=== PATIENT | female | born 1995 | race American Indian/Alaskan Native ===

== ENCOUNTER 2018-04-19 20:59 | Inpatient (IN) | payer OTHER ==
[2018-04-19 21:13] VITALS: BMI 32.5
[2018-04-19] MEDS ORDERED: Lactated Ringer's 1,000 ML IV ONE (21:57)
[2018-04-19 22:36] LABS: BASO % 0.3 % (0.0-2.0); EOS % 0.4 % (0.0-4.0); HEMOGLOBIN 9.1 g/dL (11.0-16.0); LYMPH # 2.6 K/uL (1.0-4.3); LYMPH % 34.6 % (20.0-40.0); MEAN CELL VOLUME 72.2 fL (81.0-99.0); MEAN CORPUSCULAR HEMOGLOBIN 23.5 pg (27.0-31.0); MEAN CORPUSCULAR HGB CONC 32.6 g/dL (33.0-37.0); MEAN PLATELET VOLUME 9.8 fL (7.2-11.7); MONO # 0.8 K/uL (0.0-0.8); MONO % 10.3 % (0.0-10.0); NEUT % 54.4 % (50.0-75.0); RBC 3.88 Mil/uL (3.80-5.20); RED CELL DISTRIBUTION WIDTH 17.3 % (11.5-14.5); WHITE BLOOD COUNT 7.4 K/uL (4.8-10.8)
--- NOTE | 2018-04-19 22:42 | OBADHP ---
Datetime: 04/19/2018 22:37 Admit Comment, IP Provider: 22 y/o at 38.6 wks in Labor Admit to L_D Labd including T_C for 2 units on hold for low H/H from 04/17/18 CBC No records available. Requesting Epidural for pain Pelvic Type - PN: Adequate Extremities - PN: Normal Abdomen - PN: Normal Presentation-Admit: Vertex FHR - Baseline A Provider: 130 Membranes, Provider: Intact Contraction Comments Provider: Every 3-4 min Comments, ACOG Physical Exam: ABD: Soft, NT VE: 4/80/-2 Gestation - Est Wks by US: 38.6 IP Chief Complaint: Uterine contractions NICHD Variability Prov Fetus A: Moderate 6-25bpm NICHD Accel Fetus A IP Provider: 15X15 FHR Category Provider Fetus A: Category I NICHD Decel Fetus A IP Provider: None Dilatation, Provider: 4 Effacement, Provider: 80 Station, Provider: -2 EGA AdmitDate IP: 38.2 IP Adm Impression: Term, intrauterine IP Admit Plan: Admit to unit; Initiate labor protocol Datetime: 04/19/2018 21:34 Back - PN: Normal Breast - PN: Normal Lungs - PN: Normal Heart - PN: Normal Thyroid - PN: Normal Neurologic - PN: Normal HEENT - PN: Normal General - PN: Normal Vital Signs Provider: Reviewed; Within Normal Limits Genitourinary Exam: Normal DTRs - PN: Normal
[2018-04-19 22:50] LABS: ALB/GLOB RATIO 0.9 (1.0-2.1); ALBUMIN 3.3 g/dL (3.5-5.0); ALT/SGPT 17 U/L (9-52); AST/SGOT 24 U/L (14-36); BLOOD UREA NITROGEN 4 mg/dL (7-17); CALCIUM 9.4 mg/dl (8.6-10.4); GFR AFRICAN-AMERICAN > 60; GFR NON-AFRICAN AMERICAN > 60
[2018-04-19] MEDS ORDERED: Bupivacaine HCl/FentaNYL Cit 100 ML EPI ONE (22:53)
[2018-04-19 23:03] LABS: SQUAMOUS EPITHIAL 1 /hpf (0-5); URINE AMORPHOUS SEDIMENT OCC /ul (<OCC); URINE BACTERIA RARE (<OCC); URINE BILIRUBIN NEGATIVE (NEGATIVE); URINE BLOOD NEGATIVE (NEGATIVE); URINE CLARITY Clear (Clear); URINE COLOR Straw (YELLOW); URINE GLUCOSE (UA) NORMAL (Normal); URINE LEUKOCYTE ESTERASE TRACE Leu/uL (Negative); URINE PROTEIN NEGATIVE (NEGATIVE); URINE UROBILINOGEN NORMAL mg/dL (0.2-1.0)
[2018-04-19 23:21] LABS: HEPATITIS B SURFACE AG Negative (NEGATIVE)
--- NOTE | 2018-04-19 23:55 | OBDS ---
DELIVERY PERSONNEL Nurse Machinery Repair Maintenance Supervisor Certified: N/A Delivery Doctor: DR DELMA Funes Nurse: N/Samia Logistics Tech: Kristine Fajardo RN Anesthesiologist: N/A International Tax Manager: N/A Resident: NCasa MATERNAL INFORMATION Delivery Anesthesia: None Medications in Delivery: PITOCIN 20 UNITS IN 1L LR Estimated Blood Loss (ml): 225 Placenta Cultured: No Maternal Complications: None RN Comments: delivered via to live baby girl with an score 0f 9 and 9 Provider Comments: After the FD Membranes were ruptured at the time of VE. Pt started pushing immedi ately. Pt was very uncomfortable with pain and riding on the bed. Head delivered at direct OP positio n. Shoulders delivered artaumatically adn the rest of the body followed. Placenta delivered spontaneo usly. Laceration repaired with 2-0 and 3-0 vicryl. LABOR SUMMARY EDC: 05/01/2018 00:00 No. Babies in Womb: 1 Attempted: No Labor Anesthesia: None LABOR INFORMATION Onset of Labor: 04/19/2018 09:00 Complete Dilatation: 04/19/2018 22:50 Group B Beta Strep: Negative (Annotations: 04/14/2018) Antibiotics # of Doses: 0 Antibiotics Time of Last Dose: N/A Steroids Given: None Reason Steroids Not Administered: Not Applicable MEMBRANES Membranes Rupture Method: Spontaneous Rupture of Membranes: 04/19/2018 22:49 Length of Rupture (hrs): 0.47 Amniotic Fluid Color: Clear Amniotic Fluid Amount: Moderate Amniotic Fluid Odor: Normal STAGES OF LABOR Stage 1 hrs: 13 Stage 1 min: 50 Stage 2 hrs: 0 Stage 2 min: 27 Stage 3 hrs: 0 Stage 3 min: 5 Total Time in Labor hrs: 14 Total Time in Labor min: 22 VAGINAL DELIVERY Episiotomy: None Laceration Extension: Second Degree Laceration Type: Periurethral Other Laceration: second degree mid perineum right periurethral Laceration Repair: Yes Laceration Repair Note: laceration repaired with 2-0 vicryl ( Mid perineal) Adriana urethral repaired w ith 3-0 vicryl Initial Vag Sponge Count: 10 Final Vag Sponge Count: 10 Initial Vag Sharps Count: 2 Final Vag Sharps Count: 2 Sponge Count Correct: Yes Sharps Count Correct: Yes BABY A INFORMATION Delivery Date/Time: 04/19/2018 23:17 Method of Delivery: Vaginal Born in Route : No : N/A Forceps: N/A Vacuum Extraction: N/A Shoulder Dystocia : No SHOULDER DYSTOCIA BABY A Delivery Date/Time: 04/19/2018 23:17 PRESENTATION/POSITION BABY A Presentation: Cephalic Cephalic Presentation: Vertex Vertex Position: DIRECT OP Breech Presentation: N/A PLACENTA INFORMATION BABY A Placenta Delivery Time : 04/19/2018 23:22 Placenta Method of Delivery: Spontaneous Placenta Status: Delivered SCORES BABY A Heart Rate 1 min: >100 bpm Resp Effort 1 min: Good Cry Reflex Irritability 1 min: Cough or Sneeze or Pulls Away Muscle Tone 1 min: Active Motion Color 1 min: Body [place], Extremities Blue Resuscitation Effort 1 min: N/A SCORE 1 MIN: 9 Heart Rate 5 min: >100 bpm Resp Effort 5 min: Good Cry Reflex Irritability 5 min: Cough or Sneeze or Pulls Away Muscle Tone 5 min: Active Motion Color 5 min: Body [place], Extremities Blue Resuscitation Effort 5 min: N/A SCORE 5 MIN: 9 INFANT INFORMATION BABY A Gestational Age at Delivery: 38.2 Gestational Status: Term Infant Outcome : Liveborn Condition : Stable Infant Sex: Female IDENTIFICATION/MEDS BABY A ID Band Number: [id number] ID Band Location: Right Leg; Left Leg Sensor Applied: Yes Sensor Number: [id number] Sensor Location : Cord Clamp Vitamin K Given : Aquamephyton 1 mg IM; Left Thigh Erythromycin Given: Given Both Eyes WEIGHT/LENGTH BABY A Birthweight (gms): 3050 Weight (lb): 6 Weight (oz): 12 Infant Length Inches: 19.00 Length cms: 48.3 CORD INFORMATION BABY A No. Cord Vessels: #3 Nuchal Cord : N/A Nuchal Cord Other: 0 True Knot: 0 Cord pH Baby Arterial: n/a Cord pH Baby Venous: n/a Cord Blood Taken: Yes Banking/Donate Info: n/a Infant Suction: None ASSESSMENT BABY A Complications: None Physical Findings at Delivery: Within Normal Limits Infant Respirations: Appears Normal Digital Marketing Assistant/ALS Called : No Infant Care By: KRISTINE FAJARDO RN Transferred To: Nursery
[2018-04-19] MEDS ORDERED: Oxytocin 30 UNIT 30 UNITS/500 ML BAG IV ONE (23:58)
[2018-04-19] MEDS ORDERED: Benzocaine/Menthol 20%-0.5% Topical Spray (60 ml) TOP PRN (23:58)
[2018-04-20] MEDS: Oxycodone/Acetaminophen 5/325 mg Tab PO PRN ×3 (04:53→17:06)
[2018-04-20 06:53] LABS: BASO % 0.2 % (0.0-2.0); HEMOGLOBIN 8.3 g/dL (11.0-16.0); LYMPH # 1.5 K/uL (1.0-4.3); LYMPH % 11.2 % (20.0-40.0); MEAN CELL VOLUME 72.9 fL (81.0-99.0); MEAN CORPUSCULAR HEMOGLOBIN 22.8 pg (27.0-31.0); MEAN CORPUSCULAR HGB CONC 31.3 g/dL (33.0-37.0); MEAN PLATELET VOLUME 9.8 fL (7.2-11.7); MONO # 1.4 K/uL (0.0-0.8); MONO % 10.7 % (0.0-10.0); NEUT # 10.4 K/uL (1.8-7.0); NEUT % 77.9 % (50.0-75.0); RBC 3.62 Mil/uL (3.80-5.20); RED CELL DISTRIBUTION WIDTH 17.4 % (11.5-14.5); WHITE BLOOD COUNT 13.4 K/uL (4.8-10.8)
--- NOTE | 2018-04-20 08:06 | OBPPN ---
Datetime: 04/20/2018 07:59 PP Pain Prov: Within normal limits PP Nausea Prov: Denies PP Comments Phys Exam Prov: ABD: Soft, NT, Uterus firm at Umbilicus Ext: NO calf tenderness PP Impression Prov: Normal progression PP Plan Prov: Continue present management PP Progress Note Prov: A/P: Pt doing well. No complaints today. Continue post Ice pack to the perineum Vital Signs Provider PP: Reviewed
[2018-04-20] MEDS: Multiple Vitamins Tab PO SCH (09:50)
--- NOTE | 2018-04-20 21:08 | OBPPN ---
Datetime: 04/20/2018 21:03 PP Pain Prov: Within normal limits PP Nausea Prov: Denies PP Flatus Prov: Yes PP Breasts Prov: Normal PP Abdomen/Uterus Prov: Normal PP CVA Tenderness Prov: Normal PP Comments Phys Exam Prov: fudi below um ext no ed edm vulva healing PP Impression Prov: Normal progression PP Plan Prov: Continue present management PP Progress Note Prov: pt was seen at bed side because of fever.no breast pain no cough,min lochia. exam n a s/p pod#1 plan tylenol wtch tem if cont fever in am will start abxs and blod culture encourage ambulation Vital Signs Provider PP: Reviewed; Within Normal Limits
[2018-04-21 08:29] LABS: BASO % 0.2 % (0.0-2.0); EOS % 0.1 % (0.0-4.0); HEMOGLOBIN 7.6 g/dL (11.0-16.0); LYMPH # 1.4 K/uL (1.0-4.3); LYMPH % 8.9 % (20.0-40.0); MEAN CELL VOLUME 72.3 fL (81.0-99.0); MEAN CORPUSCULAR HEMOGLOBIN 23.3 pg (27.0-31.0); MEAN CORPUSCULAR HGB CONC 32.3 g/dL (33.0-37.0); MEAN PLATELET VOLUME 9.6 fL (7.2-11.7); MONO # 1.6 K/uL (0.0-0.8); MONO % 9.8 % (0.0-10.0); NEUT # 13.2 K/uL (1.8-7.0); PLATELET COUNT 220 K/uL (130-400); RBC 3.26 Mil/uL (3.80-5.20); RED CELL DISTRIBUTION WIDTH 17.9 % (11.5-14.5); WHITE BLOOD COUNT 16.3 K/uL (4.8-10.8)
[2018-04-21] MEDS: Multiple Vitamins Tab PO SCH (10:01)
[2018-04-21 10:29] LABS: BANDS 14 % (0-2); LYMPHOCYTE 9 % (20-40); MONOCYTE 8 % (0-10); NEUTROPHIL 69 % (50-75); TOTAL CELLS COUNTED 100
[2018-04-21 10:30] LABS: ANISOCYTOSIS SLIGHT; HYPOCHROMIC MODERATE; PLATELET ESTIMATE NORMAL (NORMAL); TOXIC GRANULATION PRESENT
[2018-04-21 10:31] LABS: OVALOCYTES SLIGHT
[2018-04-21] MEDS: Oxycodone/Acetaminophen 5/325 mg Tab PO PRN (11:46)
[2018-04-21] MEDS ORDERED: cefTRIAXone IV 1 gm in Dextros 50 ML IVPB ONE (13:30)
--- NOTE | 2018-04-21 16:45 | OBPPN ---
Datetime: 04/21/2018 16:23 PP Pain Prov: Abnormal PP Nausea Prov: Denies PP Flatus Prov: Yes PP BM Prov: Yes PP Breasts Prov: Not Done PP Heart Prov: Normal PP Lungs Prov: Normal PP Abdomen/Uterus Prov: Abnormal PP Lochia Prov: Normal PP Vulva/Perineum Prov: Normal PP CVA Tenderness Prov: Normal PP Extremities Prov: Normal PP Progress Prov: Normal PP Comments Phys Exam Prov: PPD # 2 Last PM event of spiking a fever of 102.4 were reviewed. Pt seen and examined this morning and c/o of uterine pain which she described as severe cramping b ut had not ask for medication yet. No other c/o's, denied urinary symptoms, cold, cough and admits to voiding and BM's OK. Afebrile since last PM and given pain medication and one dose of Keflex for possible early UTI/End ometritis However CBC revealed WBC increased from 13.4 to 16.3. Also H_H 7.6/23.6 Difficulty with and consultation was placed [facility] to discharge home today PP Impression Prov: Increased temperature; Pain PP Plan Prov: Antibiotic therapy; consult PP Progress Note Prov: PPD # 2 Last PM event of spiking a fever of 102.4 were reviewed. Pt seen and examined this morning and c/o of uterine pain which she described as severe cramping b ut had not ask for medication yet. No other c/o's, denied urinary symptoms, cold, cough and admits to voiding and BM's OK. Afebrile since last PM and given pain medication and one dose of Keflex for possible early UTI/End ometritis. However CBC this AM revealed WBC increased from 13.4 to 16.3. Also H_H 7.6/23.6 Difficulty with and consultation was placed [facility] to discharge home later on today after few more VS taken Vital Signs Provider PP: Reviewed
--- NOTE | 2018-04-21 17:01 | OBDCSUM ---
Datetime: 04/21/2018 16:44 Follow up at, Provider: Clinic in 1-2 days Disch Instr Activity: Normal activity Disch Instr Diet: Regular Discharge Instructions, Provider: Specific instructions as noted Discharge Diagnosis, Provider: Term Delivered Disch Activity Restrictions: No exercising; No sexual activity; Nothing in vagina - [place], iglesias snehal, douche Discharge Comment, Provider: Discussed with patient the result of elevated WBC, Low abdominal pain a nd + 14 Bands and more C/W possible endometritis. 1 gram of Rocephin IV was given Pt advised to remained in hospital on IV Antibiotics for 24-48 hrs and follow her WBC count closel y but she stated that her younger older child is at home and she has no Dispensing Operator after this PM. The possible complications and risks were fully discussed but she requested to sign herself out AM A and she did. Rx's for Keflex 500 mg po QID x 7 days given and for Feosol 325 po TID x 6 months as well as Col[place] e 100 mg po TID. Advised to f/up in the Clinic on next scheduled appointment in 2 days or to return if fevers > 101 or if severe pain. Rx for Keflex Discharge Diagnosis Prov Other: PPD # 2 Probable endometritis Refused IV Antibiotics Contraception after Delivery: Not Planning to Use Datetime: 04/21/2018 16:04 Discharged to, Provider: Home Follow up at, Provider: [facility] Disch Instr Activity: Normal activity Disch Instr Diet: Regular Discharge Time: 04/21/2018 16:05 Follow up in weeks, Provider: 04/23/18 Disch Referrals: None Disch Activity Restrictions: No exercising; No lifting; No driving; Minimize walking; Minimize stair -climbing; No sexual activity; Nothing in vagina - [place], tampons, douche
[2018-04-21 21:46] VITALS: BP 102/65; PULSE 85; RESP 24; TEMP 98.7; O2SAT 98
== END 2018-04-21 17:44 | disposition home or self-care (01) | DRG 372 ==
LOC: C.EROB 20:59 → C.4D 22:00 → C.4M 04-20 01:00
PROVIDERS: ADMIT Obstetrics & Gynecology; ATTEND Obstetrics & Gynecology
PROC: 0KQM0ZZ Repair Perineum Muscle, Open Approach (ICD-10-PCS; principal; 2018-04-19)
PROC: 10E0XZZ Delivery of Products of Conception, External Approach (ICD-10-PCS; 2018-04-19)
DX: O69.81X0 Labor and delivery complicated by cord around neck, without compression, not applicable or unspecified (principal); O86.12 Endometritis following delivery; O70.1 Second degree perineal laceration during delivery; N71.9 Inflammatory disease of uterus, unspecified; Z3A.38 38 weeks gestation of pregnancy; Z37.0 Single live birth